=== PATIENT | male | born 1940 | race Caucasian/White ===

== ENCOUNTER 2019-01-12 12:12 | Emergency (ER) | payer MEDICARE, OTHER ==
[~2019-01-12] VITALS: Ht 165.1 cm; Wt 95.5 kg
[2019-01-12 12:26] VITALS: Ht 165.1 cm; Wt 95.5 kg
[2019-01-12] MEDS ORDERED: PRAM0.25 PO (12:41)
[2019-01-12] MEDS ORDERED: FER325 PO (12:42)
[2019-01-12] MEDS ORDERED: ERGO500013 PO (12:42)
[2019-01-12] MEDS ORDERED: AZOP1OP10 LEFT EYE (12:43)
[2019-01-12] MEDS ORDERED: BIMA2.5D BOTH EYES (12:45)
[2019-01-12] MEDS ORDERED: POLY17PO28 PO (12:45)
[2019-01-12] MEDS ORDERED: AMIO200T4 PO (12:46)
[2019-01-12] MEDS ORDERED: METO-336 PO (12:46)
[2019-01-12] MEDS ORDERED: ROSU10TA55 PO (12:47)
[2019-01-12] MEDS ORDERED: ESOM40CA PO (12:47)
[2019-01-12] MEDS ORDERED: AMLO5TAB4 PO (12:47)
[2019-01-12] MEDS ORDERED: ASPI-817 PO (12:48)
[2019-01-12] MEDS ORDERED: IBUP-1542 PO (12:48)
[2019-01-12] MEDS ORDERED: BUSP5TAB2 PO (12:49)
--- NOTE | 2019-01-12 14:14 | ERD ---
ER Documentation Chief Complaint Chief Complaint biba from day care, palpitations & near syncope HPI 78-year-old Albanian speaking male presents to the emergency department from his elderly care facility for evaluation of high blood pressure. History is mostly available from my conversations with his son who is also providing Albanian translation. As per the triage note, patient had palpitations and near syncope. As per the patient she did not feel weak or dizzy or feel like passing out. He did feel as if his heart rate went slightly fast after he was told that his blood pressure was slightly high but he had no actual palpitations. As per the patient, he was at his boarding care facility where they checked his blood pressure which was noted to be 170 systolic. This scared the care facility called the paramedics. I have reviewed the spa consultant pre-hospital care. Pre-hospital vital signs were reviewed. Pre-hospital diagnostic tests were reviewed. Upon arrival, patient is asymptomatic and has no complaints. ROS All systems reviewed and are negative except as per history of present illness. Medications Home Meds Reported Medications Buspirone Hcl* (Buspirone Hcl*) 5 Mg Tab, 5 MG PO QHS, TAB 01/12/19 Aspirin* (Aspirin* EC) 81 Mg Tablet.dr, 81 MG PO DAILY, TAB 01/12/19 Ibuprofen* (Ibuprofen*) 600 Mg Tablet, 600 MG PO Q8, TAB 01/12/19 Esomeprazole Mag Trihydrate (Nexium) 40 Mg Capsule.dr, 40 MG PO DAILY, #30 CAP 01/12/19 Amlodipine Besylate* (Norvasc*) 5 Mg Tablet, 5 MG PO DAILY, TAB 01/12/19 Rosuvastatin Calcium* (Crestor*) 10 Mg Tablet, 10 MG PO QHS, #30 TAB 01/12/19 Metoprolol Succinate* (Toprol XL*) 100 Mg Tab.sr.24h, 100 MG PO DAILY, #30 TAB 01/12/19 Amiodarone Hcl* (Amiodarone Hcl*) 200 Mg Tablet, 400 MG PO DAILY, #30 TAB 01/12/19 Polyethylene Glycol* (Polyethylene Glycol*) 17 Gm Powd.pack, 17 GM PO DAILY, #30 PACKET 01/12/19 Bimatoprost* (Lumigan*) 0.01%-2.5 Ml Opht Drops, 1 DROP BOTH EYES HS, EA 01/12/19 Brinzolamide (Azopt) 10 Ml Drops.susp, 10 ML LEFT EYE BID 01/12/19 Ferrous Sulfate* (Ferrous Sulfate*) 325 Mg Tabec, 325 MG PO BID, TAB 01/12/19 Ergocalciferol (Vitamin D2) (VITAMIN D2) 50,000 Unit Capsule, 92790 UNIT PO Q7D, CAP 01/12/19 Pramipexole* (Pramipexole*) 0.25 Mg Tablet, 0.25 MG PO HS, TAB 01/12/19 Allergies Allergies: Coded Allergies: No Known Allergy (Unverified , 01/12/19) PMhx/Soc Hx Alcohol Use: No Hx Substance Use: No Hx Tobacco Use: No Smoking Status: Never smoker Physical Exam Vitals Vital Signs Date Temp Pulse Resp B/P (MAP) Pulse Ox O2 O2 Flow FiO2 Time Delivery Rate 01/12/19 98.7 104 18 114/75 97 12:26 (88) Physical Exam GENERAL: The patient is well developed and appropriate for usual state of health in no apparent distress HEENT: Pupils equal, round, and reactive to light. EOMI. There is no scleral icterus. NECK: C-spine is soft and supple, there is no meningismus. There is no cervical lymphadenopathy. LUNGS: Clear to auscultation bilaterally. There are no rales, wheezes or rhonchi. HEART: Regular rate and rhythm, no murmurs, clicks, rubs or gallops. ABDOMEN: Soft, non-tender, non-distended. There are bowel sounds in all four quadrants. No rebound or guarding. EXTREMITIES: There is no peripheral cyanosis or edema. No focal swelling or erythema. NEURO: The patient moves all four extremities with 5/5 strength. Cranial nerves II - XII are intact. Normal gait. Alert and oriented SKIN: There is no apparent rash or petechiae. HEME/LYMPHATIC: There is no evidence of excessive bruising or lymphedema. PSYCHIATRIC: The patient does not appear anxious or depressed. Result Diagram: 01/12/19 1222 01/12/19 1222 Results 24 hrs Laboratory Tests Test 01/12/19 12:22 01/12/19 12:44 White Blood Count 7.9 10^3/ul Red Blood Count 5.44 10^6/ul Hemoglobin 14.7 g/dl Hematocrit 46.5 % Mean Corpuscular Volume 85.5 fl Mean Corpuscular Hemoglobin 27.0 pg Mean Corpuscular Hemoglobin Concent 31.6 g/dl Red Cell Distribution Width 13.2 % Platelet Count 253 10^3/UL Mean Platelet Volume 9.8 fl Immature Granulocytes % 0.400 % Neutrophils % 65.9 % Lymphocytes % 21.0 % Monocytes % 11.0 % Eosinophils % 1.3 % Basophils % 0.4 % Nucleated Red Blood Cells % 0.0 /100WBC Immature Granulocytes # 0.030 10^3/ul Neutrophils # 5.2 10^3/ul Lymphocytes # 1.7 10^3/ul Monocytes # 0.9 10^3/ul Eosinophils # 0.1 10^3/ul Basophils # 0.0 10^3/ul Nucleated Red Blood Cells # 0.0 10^3/ul Sodium Level 140 mmol/L Potassium Level 3.9 mmol/L Chloride Level 101 mmol/L Carbon Dioxide Level 30 mmol/L Anion Gap 9 Blood Urea Nitrogen 22 mg/dl Creatinine 1.23 mg/dl Est Glomerular Filtrat Rate mL/min mL/min Glucose Level 118 mg/dl Calcium Level 8.9 mg/dl Troponin I < 0.012 ng/ml Bedside Glucose 112 mg/dL Procedures/MDM Patient was taken to a room, seen and evaluated. Comfort measures were initiated. Diagnostic tests were ordered and reviewed. 3 LEAD RHYTHM STRIP: Normal sinus rhythm without ectopy with PVCs EK lead EKG reviewed by myself: Normal Sinus Rhythm with PVCs Normal [place] and intervals No ST elevation, depression, or T wave inversion Impression: Normal EKG except for the PVCs RADIOLOGY: Reviewed with the radiologist REEVALUATION: 1410: diagnostic tests were appreciated discussed with the patient and the family. Patient remained asymptomatic, stable and well-appearing [employer]-year-old male presents the emergency department for evaluation of his blood pressure. At this time, his diagnostic tests show no indication of endorgan dysfunction related to blood pressure. He has no indications of cardiac ischemia, stroke or other symptoms. Patient has no indications of having passed out. As per conversations with the family, patient is comfortable and seems appropriate for discharge at this time. Departure Diagnosis: Primary Impression: Hypertension Condition: Stable Patient Instructions: High Blood Pressure (Hypertension) Additional Instructions: See your doctor for follow-up as discussed. Take a copy of your test results, if appropriate, to this follow-up visit. See your doctor or return here if your symptoms do not improve as expected. At any time, please return to the emergency department for any change or worsening in her symptoms. ANGELICA TYLER Jan 12, 2019 14:14
[2019-01-12 14:35] VITALS: BP 98/70; PULSE 100; RESP 18
== END 2019-01-12 15:21 | disposition home or self-care (01) ==
LOC: E/R 12:12
DX: I10 Essential (primary) hypertension (principal); Z79.82 Long term (current) use of aspirin
CPT/HCPCS: 36415; 71045; 80048; 82962; 84484; 85025; 93005